=== PATIENT | male | born 1960 | race Caucasian/White ===

== ENCOUNTER 2018-01-18 21:39 | Inpatient (IN) | payer SELFPAY ==
[~2018-01-18] VITALS: Ht 165.1 cm; Wt 70.0 kg
[~2018-01-18 21:39] MED LIST: ALBU1AER INH; ALBU6.7H INH; PRED20 PO
[2018-01-18 22:00] VITALS: BP 111/73; PULSE 85; RESP 18; TEMP 98.4; O2SAT 100
[2018-01-18] MEDS ORDERED: SODIUM CHLORIDE 0.9% FLUSH 10 ML FLUSH IV FLUSH PRN (22:45)
[2018-01-18] MEDS ORDERED: MISCELLANEOUS NURSING INFORMATION XX SCH (22:45)
[2018-01-18] MEDS ORDERED: CHLORHEXIDINE GLUCONATE 2 % 1 PACK (2 CLOTHS) TOP PRN (22:45)
[2018-01-18] MEDS ORDERED: ENALAPRILAT 1.25 MG/ML VIAL IV PUSH PRN (22:45)
[2018-01-18] MEDS ORDERED: ONDANSETRON HCL 4 MG/2 ML VIAL IV PUSH PRN (22:45)
[2018-01-18] MEDS: SODIUM CHLOR 0.9% 1000 ML INJ 1,000 ML IV SCH (23:15)
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
[2018-01-18 23:44] LABS: HEMATOCRIT 33.3 % (39.0-51.0); HEMOGLOBIN 11.4 GM/DL (13.0-17.0)
[2018-01-19] VITALS (14 sets, daily range): BP systolic 96–133; BP diastolic 55–76; PULSE 60–90; RESP 15–24; TEMP 98.7–99.1; O2SAT 92–100
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
[2018-01-19] MEDS: CHLORHEXIDINE GLUCONATE 2 % 1 PACK (2 CLOTHS) TOP SCH (03:34)
[2018-01-19 03:47] LABS: BICARBONATE 22.2 MEQ/L (21.0-32.0); CALCIUM 7.7 MG/DL (8.5-10.1); CREATININE 2.42 MG/DL (0.60-1.30)
[2018-01-19 03:48] LABS: HEMATOCRIT 31.9 % (39.0-51.0)
[2018-01-19] MEDS ORDERED: LACTATED RINGER'S 1000 ML INJ 1,000 ML IV ONE (04:30)
[2018-01-19] MEDS ORDERED: CALC0.25 PO (05:29)
[2018-01-19] MEDS ORDERED: CENTCHW4 CHEW (05:29)
[2018-01-19] MEDS ORDERED: ATOR80TA45 PO (05:29)
[2018-01-19] MEDS ORDERED: METO25TA3 PO (05:29)
[2018-01-19] MEDS: MORPHINE SULFATE 4 MG/ML INJ IV PUSH PRN ×4 (06:17→23:16)
[2018-01-19] MEDS ORDERED: RESP: ALBUTEROL 2.5 MG/IPRATROPIUM 0.5 MG NEB (PRN) NEB (06:30)
--- NOTE | 2018-01-19 06:54 | RADRPT ---
EXAM DATE/TIME: 01/19/2018 06:40 [facility] COMPARISON: CHEST SINGLE AP, August 12, 2015, 21:38. INDICATIONS : Shortness of breath. MEDICAL HISTORY : Hypertension. Cardiovascular disease SURGICAL HISTORY : Appendectomy. ENCOUNTER: Subsequent ACUITY: 2 days PAIN SCORE: 0/10 LOCATION: Bilateral chest FINDINGS: No new focal pleural-parenchymal opacities. Cardiomediastinal contours are within normal limits. Infe rior Left-sided rib fractures. Remainder of exam is unchanged. CONCLUSION: 1. Redemonstration of inferior left rib fractures without pneumothorax. 2. Otherwise, no acute abnormality. Robert Whitt MD on January 19, 2018 at 6:51 Board Certified Radiologist. This report was verified electronically.
[2018-01-19 07:45] LABS: HEMATOCRIT 31.3 % (39.0-51.0); HEMOGLOBIN 10.8 GM/DL (13.0-17.0)
[2018-01-19] MEDS: RESP: ALBUTEROL 2.5 MG/IPRATROPIUM 0.5 MG NEB (SCH) NEB ×4 (08:00→19:51)
[2018-01-19] MEDS: METOPROLOL TARTRATE 25 MG TAB PO SCH ×2 (08:19→22:36)
[2018-01-19] MEDS: THIAMINE HCL 100 MG TAB PO SCH (08:19)
[2018-01-19] MEDS: ACETAMINOPHEN 1000 MG/100 ML 100 ML IV SCH ×3 (08:19→17:35)
[2018-01-19] MEDS: FAMOTIDINE 20 MG/2 ML VIAL IV PUSH SCH ×2 (08:19→22:35)
[2018-01-19] MEDS: FOLIC ACID 1 MG TAB PO SCH (08:19)
[2018-01-19] MEDS: SODIUM CHLOR 0.9% 1000 ML INJ 1,000 ML IV SCH ×2 (08:19→17:35)
[2018-01-19] MEDS: MULTIVITAMIN TAB PO SCH (08:19)
[2018-01-19] MEDS: LIDOCAINE HCL 5% PATCH T-DERMAL SCH (08:20)
--- NOTE | 2018-01-19 09:08 | RADRPT ---
EXAM DATE/TIME: 01/19/2018 08:43 [facility] COMPARISON: No previous studies available for comparison. INDICATIONS : Left tibia fracture RADIATION DOSE: 20.08 CTDIvol (mGy) MEDICAL HISTORY : Hypertension. Cardiovascular disease Chronic obstructive pulmonary disease. SURGICAL HISTORY : None. ENCOUNTER: Initial ACUITY: 1 day PAIN SCALE: 5/10 LOCATION: Left tibia TECHNIQUE: Volumetric scanning of the tibia and fibula was performed. Using automated exposure control and adju stment of the mA and/or kV according to patient size, radiation dose was kept as low as reasonably ac hievable to obtain optimal diagnostic quality images. DICOM format image data is available [facility] for review and comparison. FINDINGS: BONES: There is an oblique fracture of the proximal tibial metadiaphyseal region. It begins anteriorly just above the tibial tuberosity and exits posteriorly 7.5 cm below the articulating surface. There is an additional oblique fracture involving the neck of the fibula. JOINTS: Arthritic change of the medial compartment posteriorly with subchondral sclerosis and cystic change. Old osteochondral lesion of the talar dome laterally SOFT TISSUES: Muscles, tendons, and neurovascular structures are grossly unremarkable. No evidence of mass, organi zed fluid collection or foreign body. CONCLUSION: Slightly displaced fractures involving both the fibula and tibia. No definite lytic surfaces are invo lved and are not significantly angled or displacement. Arthritic change of the medial compartment and the lateral talar dome. Raymond Whittington MD on January 19, 2018 at 9:05 Board Certified Radiologist. This report was verified electronically.
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
--- NOTE | 2018-01-19 11:24 | HHI.CCPN ---
Objective Vital Signs Date Time Temp Pulse Resp B/P (MAP) Pulse Ox O2 Delivery O2 Flow Rate FiO2 01/19/18 10:00 67 01/19/18 08:00 98.9 24 133/76 (95) 95 01/19/18 07:00 Room Air Intake and Output 01/19/18 01/19/18 01/20/18 08:00 16:00 00:00 Intake Total 1565 ml Output Total 125 ml Balance 1440 ml Result Diagram: 01/19/18 0715 01/19/18 0319 Imaging Last 24 hours Impressions Lower Extremity CT 01/19/18 0000 Signed Impressions: Service Date/Time: January 08:43 - CONCLUSION: Slightly displaced fractures involving both the fibula and tibia. No definite lytic surfaces are involved and are not significantly angled or displacement. Arthritic change of the medial compartment and the lateral talar dome. Raymond Whittington MD Chest X-Ray 01/19/18 0000 Signed Impressions: Service Date/Time: January 06:40 - CONCLUSION: 1. Redemonstration of inferior left rib fractures without pneumothorax. 2. Otherwise, no acute abnormality. Robert Whitt MD Assessment and Plan Attestation The exam, history, and the medical decision-making described in the above note were completed with the assistance of the mid-level provider. I reviewed and agree with the findings presented. I attest that I had a [id number] encounter with the patient on the same day, and personally performed and documented my assessment and findings in the medical record. Guido Bauer MD Jan 19, 2018 11:24
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
[2018-01-19 12:19] LABS: AUTOMATED NEUTROPHIL # 6.8 TH/MM3 (1.8-7.7); BASOPHIL % 0.1 % (0.0-2.0); EOSINOPHIL % 0.4 % (0.0-4.0); HEMATOCRIT 34.2 % (39.0-51.0); HEMOGLOBIN 11.7 GM/DL (13.0-17.0); LYMPH % 16.1 % (9.0-44.0); LYMPHOCYTE # 1.5 TH/MM3 (1.0-4.8); MEAN CELL VOLUME 92.1 FL (80.0-100.0); MEAN CORPUSCULAR HEMOGLOBIN 31.4 PG (27.0-34.0); MEAN CORPUSCULAR HGB CONC 34.1 % (32.0-36.0); MEAN PLATELET VOLUME 8.2 FL (7.0-11.0); MONO % 9.7 % (0.0-8.0); MONOCYTE # 0.9 TH/MM3 (0-0.9); NEUT % 73.7 % (16.0-70.0); PLATELET COUNT 208 TH/MM3 (150-450); RED BLOOD COUNT 3.72 MIL/MM3 (4.50-5.90); RED CELL DISTRIBUTION WIDTH 13.5 % (11.6-17.2); WHITE BLOOD COUNT 9.2 TH/MM3 (4.0-11.0)
[2018-01-19 12:32] LABS: ALBUMIN 3.3 GM/DL (3.4-5.0); DIRECT BILIRUBIN ADULT 0.1 MG/DL (0.0-0.2)
[2018-01-19 12:39] LABS: INDIRECT BILIRUBIN 0.4 MG/DL (0.0-0.8); TOTAL BILIRUBIN ADULT 0.5 MG/DL (0.2-1.0); TOTAL PROTEIN 6.4 GM/DL (6.4-8.2)
[2018-01-19] MEDS: ATORVASTATIN 80 MG TAB PO SCH (22:36)
[2018-01-20] VITALS (14 sets, daily range): BP systolic 111–173; BP diastolic 62–84; PULSE 68–115; RESP 18–26; TEMP 97.7–98.7; O2SAT 92–100
[2018-01-20 00:20] LABS: HEMATOCRIT 27.1 % (39.0-51.0); HEMOGLOBIN 9.5 GM/DL (13.0-17.0)
[2018-01-20] MEDS: ACETAMINOPHEN 1000 MG/100 ML 100 ML IV SCH ×2 (00:43→01:30)
[2018-01-20] MEDS: SODIUM CHLOR 0.9% 1000 ML INJ 1,000 ML IV SCH (03:36)
[2018-01-20] MEDS: CHLORHEXIDINE GLUCONATE 2 % 1 PACK (2 CLOTHS) TOP SCH (04:00)
[2018-01-20] MEDS: MORPHINE SULFATE 4 MG/ML INJ IV PUSH PRN (04:51)
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
[2018-01-20] MEDS: RESP: ALBUTEROL 2.5 MG/IPRATROPIUM 0.5 MG NEB (SCH) NEB ×4 (08:10→20:00)
[2018-01-20] MEDS: METOPROLOL TARTRATE 25 MG TAB PO SCH ×2 (08:33→20:27)
[2018-01-20] MEDS: THIAMINE HCL 100 MG TAB PO SCH (08:33)
[2018-01-20] MEDS: FOLIC ACID 1 MG TAB PO SCH (08:33)
[2018-01-20] MEDS: MULTIVITAMIN TAB PO SCH (08:33)
[2018-01-20] MEDS: LIDOCAINE HCL 5% PATCH T-DERMAL SCH (08:34)
[2018-01-20] MEDS: FAMOTIDINE 20 MG/2 ML VIAL IV PUSH SCH (08:34)
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
[2018-01-20] MEDS: MORPHINE SULFATE 2 MG/ML INJ IV PUSH PRN ×2 (09:30→20:26)
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
[2018-01-20] MEDS: FAMOTIDINE 20 MG TAB PO SCH ×2 (12:00→20:27)
[2018-01-20] MEDS ORDERED: WHEEMIS3 (12:03)
[2018-01-20] MEDS: METHOCARBAMOL 500 MG TAB PO SCH ×2 (12:08→20:26)
[2018-01-20] MEDS: DOCUSATE SODIUM 100 MG CAP PO SCH ×2 (12:08→20:27)
[2018-01-20] MEDS: MAGNESIUM HYDROXIDE SUSP 30 ML CUP PO SCH ×2 (12:08→20:25)
[2018-01-20 13:52] LABS: HEMATOCRIT 30.2 % (39.0-51.0); HEMOGLOBIN 10.5 GM/DL (13.0-17.0)
[2018-01-20] MEDS: ACETAMINOPHEN/HYDROcodone 325 MG/5 MG TAB PO PRN ×2 (15:11→19:05)
--- NOTE | 2018-01-20 19:10 | RADRPT ---
EXAM DATE/TIME: 01/20/2018 18:14 [facility] COMPARISON: CHEST SINGLE AP, January 19, 2018, 6:40. INDICATIONS : Short of breath. MEDICAL HISTORY : Hypertension. Cardiovascular disease SURGICAL HISTORY : Appendectomy. ENCOUNTER: Subsequent ACUITY: 3 days PAIN SCORE: 0/10 LOCATION: Bilateral chest FINDINGS: Bibasilar streakiness is noted consistent with atelectasis and/or infiltrates. The heart is stable. T he pulmonary vascular pattern is normal. Degenerative changes are noted involving the shoulders bilat erally. CONCLUSION: Bibasilar streakiness consistent with atelectasis and/or infiltrate. Malachi Yang MD on January 20, 2018 at 19:08 Board Certified Radiologist. This report was verified electronically.
--- NOTE | 2018-01-20 19:12 | RADRPT ---
EXAM DATE/TIME: 01/20/2018 18:17 [facility] COMPARISON: No previous studies available for comparison. INDICATIONS : Post casting left tib fib. MEDICAL HISTORY : Hypertension. Chronic obstructive pulmonary disease. Hypertension. SURGICAL HISTORY : None. ENCOUNTER: Subsequent ACUITY: 3 days PAIN SCORE: 3/10 LOCATION: Left Tib fib. FINDINGS: Casting of the acute fractures involving the proximal tibia and fibula is noted. Plantar calcaneal sp urring is noted. Medial femoral tibial joint degenerative changes are noted. CONCLUSION: Status post casting of acute fractures involving the proximal tibia and fibula. Degen erative changes involving the medial femoral tibial joint. Plantar calcaneal spurring. Malachi Yang MD on January 20, 2018 at 19:09 Board Certified Radiologist. This report was verified electronically.
[2018-01-20] MEDS: ATORVASTATIN 80 MG TAB PO SCH (20:26)
[2018-01-20 21:40] LABS: HEMATOCRIT 25.5 % (39.0-51.0); HEMOGLOBIN 8.5 GM/DL (13.0-17.0)
[2018-01-21] VITALS (28 sets, daily range): BP systolic 98–179; BP diastolic 59–85; PULSE 82–119; RESP 17–26; TEMP 97.5–99.1; O2SAT 21–100
[2018-01-21 01:02] LABS: HEMOGLOBIN 7.1 GM/DL (13.0-17.0)
[2018-01-21 01:10] LABS: HEMATOCRIT 20.1 % (39.0-51.0)
[2018-01-21] MEDS: ACETAMINOPHEN/HYDROcodone 325 MG/5 MG TAB PO PRN ×3 (02:25→19:28)
[2018-01-21] MEDS ORDERED: IOHEXOL 350 MG/ML 10 ML VIAL (for RAD DIAG) IVCONTRAST ONE (02:42)
--- NOTE | 2018-01-21 03:00 | RADRPT ---
EXAM DATE/TIME: 01/21/2018 02:32 [facility] COMPARISON: No previous studies available for comparison. INDICATIONS : Decreased hemoblobin. Evaluate hemorrhage. IV CONTRAST: 75 Omnipaque 350 (iohexol) IV ORAL CONTRAST: No oral contrast ingested. RADIATION DOSE: 8.13 CTDIvol (mGy) MEDICAL HISTORY : Hypertension. SURGICAL HISTORY : Appendectomy. ENCOUNTER: Initial ACUITY: 1 day PAIN SCALE: Non-responsive LOCATION: abdomen TECHNIQUE: Volumetric scanning of the abdomen and pelvis was performed. Using automated exposure control and ad justment of the mA and/or kV according to patient size, radiation dose was kept as low as reasonably achievable to obtain optimal diagnostic quality images. DICOM format image data is available electro nically for review and comparison. FINDINGS: LOWER LUNGS: Small left pleural effusion and consolidation in the left lower lobe. Small area of opacity in the m edial right lower lung. Small hiatus hernia. LIVER: Homogeneous density without lesion. There is no dilation of the biliary tree. No calcified gallston es. SPLEEN: Multiple lucencies in the spleen including 2 vertical fracture lines and inhomogeneous enhancement in the posterior spleen. Perisplenic fluid is of intermediate density (59 Hounsfield units), greater i n density than the other fluid seen in the abdomen (the fluid about the liver has mean CT density 35 Hounsfield units and the fluid in the pelvis has CT density 36 Hounsfield). Some of the fracture adolfo es extend and are about the splenic hilum. PANCREAS: Within normal limits. KIDNEYS: Homogeneous parenchymal enhancement bilaterally. No cortical discontinuities. No evidence of hydron ephrosis. ADRENAL GLANDS: Within normal limits. VASCULAR: There is no aortic aneurysm. BOWEL/MESENTERY: No dilated loops of small or large bowel. Prominent amount of fluid throughout the abdomen and track ing into the pelvis, measuring 5 cm in AP dimension in the pelvis. The density of the fluid in the l eft paracolic gutter is greater than on the right. ABDOMINAL WALL: Within normal limits. RETROPERITONEUM: There is no lymphadenopathy. BLADDER: No wall thickening or mass. REPRODUCTIVE: Within normal limits. INGUINAL: There is no lymphadenopathy or hernia. MUSCULOSKELETAL: Nondisplaced fracture of the lateral left 9th rib and minimally displaced fracture of the posterior l eft 11th. CONCLUSION: Multiple splenic lacerations with intermediate density fluid in the left abdomen and significant flui d tracking into the pelvis. There are also 2 left rib fractures (9th and 11th). Devin Walls MD on January 21, 2018 at 2:50 Board Certified Radiologist. This report was verified electronically.
[2018-01-21] MEDS: CHLORHEXIDINE GLUCONATE 2 % 1 PACK (2 CLOTHS) TOP SCH (04:00)
[2018-01-21] MEDS: METHOCARBAMOL 500 MG TAB PO SCH ×3 (04:40→20:06)
--- NOTE | 2018-01-21 05:10 | RADRPT ---
EXAM DATE/TIME: 01/21/2018 04:15 [facility] COMPARISON: CHEST SINGLE AP, January 20, 2018, 18:14. INDICATIONS : Pulmonary contusion. Inferior left sided rib fractures. MEDICAL HISTORY : Hypertension. Cardiovascular disease SURGICAL HISTORY : Appendectomy. ENCOUNTER: Subsequent ACUITY: 4 - 6 days PAIN SCORE: 0/10 LOCATION: Bilateral chest FINDINGS: Persistent bibasilar atelectasis stable from prior. The remainder the lungs are clear. The heart is normal in size. CONCLUSION: Stable appearance to bibasilar atelectasis. No focal infiltrates seen. The Devin Walls MD on January 21, 2018 at 5:08 Board Certified Radiologist. This report was verified electronically.
[2018-01-21] MEDS: METOPROLOL TARTRATE 25 MG TAB PO SCH ×2 (08:07→20:05)
[2018-01-21] MEDS: RESP: ALBUTEROL 2.5 MG/IPRATROPIUM 0.5 MG NEB (SCH) NEB ×4 (08:27→20:09)
[2018-01-21] MEDS: FAMOTIDINE 20 MG TAB PO SCH ×2 (09:00→20:05)
[2018-01-21] MEDS: MULTIVITAMIN TAB PO SCH (09:00)
[2018-01-21] MEDS: FOLIC ACID 1 MG TAB PO SCH (09:00)
[2018-01-21] MEDS: DOCUSATE SODIUM 100 MG CAP PO SCH ×2 (09:00→20:05)
[2018-01-21] MEDS: THIAMINE HCL 100 MG TAB PO SCH (09:00)
[2018-01-21] MEDS: MAGNESIUM HYDROXIDE SUSP 30 ML CUP PO SCH ×2 (09:00→20:06)
[2018-01-21 09:30] LABS: AUTOMATED NEUTROPHIL # 6.6 TH/MM3 (1.8-7.7); BASOPHIL % 0.2 % (0.0-2.0); EOSINOPHIL # 0.1 TH/MM3 (0-0.4); EOSINOPHIL % 0.6 % (0.0-4.0); HEMOGLOBIN 9.1 GM/DL (13.0-17.0); LYMPH % 18.1 % (9.0-44.0); LYMPHOCYTE # 1.7 TH/MM3 (1.0-4.8); MEAN CELL VOLUME 87.3 FL (80.0-100.0); MEAN CORPUSCULAR HEMOGLOBIN 31.7 PG (27.0-34.0); MEAN PLATELET VOLUME 8.1 FL (7.0-11.0); MONO % 12.1 % (0.0-8.0); MONOCYTE # 1.1 TH/MM3 (0-0.9); PLATELET COUNT 131 TH/MM3 (150-450); RED BLOOD COUNT 2.86 MIL/MM3 (4.50-5.90); RED CELL DISTRIBUTION WIDTH 14.6 % (11.6-17.2); WHITE BLOOD COUNT 9.5 TH/MM3 (4.0-11.0)
[2018-01-21 09:34] LABS: MEAN CORPUSCULAR HGB CONC 36.4 % (32.0-36.0)
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
[2018-01-21 10:36] LABS: BANDS 9 % (0-6); LYMPHOCYTES 16 % (9-44); MONOCYTES 3 % (0-8); NEUTROPHIL # MANUAL DIFF 7.7 TH/MM3 (1.8-7.7); POLYS (SEG NEUTROPHILS) 72 % (16-70)
[2018-01-21] MEDS ORDERED: MIDAZOLAM HCL 2 MG/2 ML VIAL ONE (11:21)
[2018-01-21] MEDS ORDERED: ceFAZolin 2 GM PREMIX 50 ML ONE (11:34)
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
[2018-01-21] MEDS ORDERED: GELATIN 12 MM/7 MM FOAM I-ARTERIAL ONE (12:00)
[2018-01-21] MEDS ORDERED: IODIXANOL 320 MG/ML 50 ML VIAL (for RAD SPEC) I-ARTERIAL ONE (12:00)
--- NOTE | 2018-01-21 12:04 | PD.RAD ---
Post Procedure Progress Note Pre Procedure Diagnosis: (1) Splenic laceration Post Procedure Diagnosis: (1) Splenic laceration Procedure Date: Jan 21, 2018 Supervising Radiologist: Devin Franco JR Proceduralist/Assist: Demetris Phelps RT(R), Vashti Castellano RT(R) Anesthesia: Conscious Sedation Plan of Activity Patient to Unit: Critical Care Patient Condition: Good See PACS Report for procedural detail/treatment Vascular-Arterial Procedure Procedure 1 Procedure Site: Celiac Procedure(s): Angiogram, Embolization Access Access Site(s): Right Femoral Artery Findings: Selective splenic artery angio shows active hemorrhage from lower pole of spleen. Successful gelfoan embolization. No further bleeding. Plan Bach to unit in good condition. Jr. Salvador,Devin Ortega MD Jan 21, 2018 12:04
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
[2018-01-21] MEDS: LIDOCAINE HCL 5% PATCH T-DERMAL SCH (14:03)
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
[2018-01-21 15:39] LABS: HEMATOCRIT 21.3 % (39.0-51.0); HEMOGLOBIN 7.4 GM/DL (13.0-17.0)
[2018-01-21 15:56] LABS: ALBUMIN 2.5 GM/DL (3.4-5.0); ALT (GPT) 20 U/L (12-78); AST (GOT) 29 U/L (15-37); BICARBONATE 20.8 MEQ/L (21.0-32.0); BLOOD UREA NITROGEN 34 MG/DL (7-18); CALCIUM 7.7 MG/DL (8.5-10.1); CHLORIDE 108 MEQ/L (98-107); CREATININE 2.32 MG/DL (0.60-1.30); GLOMERULAR FILTRATION RATE 29 ML/MIN (>89); GLUCOSE,RANDOM 127 MG/DL (74-106); SODIUM (NA) 138 MEQ/L (136-145)
[2018-01-21 16:01] LABS: ALKALINE PHOSPHATASE 55 U/L (45-117); TOTAL BILIRUBIN ADULT 0.4 MG/DL (0.2-1.0); TOTAL PROTEIN 5.1 GM/DL (6.4-8.2)
[2018-01-21] MEDS: ATORVASTATIN 80 MG TAB PO SCH (20:05)
[2018-01-21] MEDS: MORPHINE SULFATE 2 MG/ML INJ IV PUSH PRN (22:59)
[2018-01-22] VITALS (13 sets, daily range): BP systolic 120–174; BP diastolic 69–96; PULSE 82–108; RESP 17–24; TEMP 97.5–99.2; O2SAT 90–98
[2018-01-22 03:38] LABS: HEMATOCRIT 28.5 % (39.0-51.0); HEMOGLOBIN 9.9 GM/DL (13.0-17.0)
[2018-01-22] MEDS: CHLORHEXIDINE GLUCONATE 2 % 1 PACK (2 CLOTHS) TOP SCH (04:00)
[2018-01-22] MEDS: METHOCARBAMOL 500 MG TAB PO SCH ×3 (04:02→20:00)
[2018-01-22] MEDS: ACETAMINOPHEN/HYDROcodone 325 MG/5 MG TAB PO PRN ×4 (04:02→20:57)
[2018-01-22] MEDS: MAGNESIUM HYDROXIDE SUSP 30 ML CUP PO SCH ×2 (08:13→20:00)
[2018-01-22] MEDS: FAMOTIDINE 20 MG TAB PO SCH ×2 (08:13→20:00)
[2018-01-22] MEDS: DOCUSATE SODIUM 100 MG CAP PO SCH ×2 (08:14→20:00)
[2018-01-22] MEDS: METOPROLOL TARTRATE 25 MG TAB PO SCH (08:14)
[2018-01-22] MEDS: LIDOCAINE HCL 5% PATCH T-DERMAL SCH (08:14)
[2018-01-22] MEDS: RESP: ALBUTEROL 2.5 MG/IPRATROPIUM 0.5 MG NEB (SCH) NEB ×4 (08:46→20:11)
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
[2018-01-22] MEDS: amLODIPine BESYLATE 5 MG TAB PO SCH (11:52)
[2018-01-22 11:57] LABS: BICARBONATE 23.6 MEQ/L (21.0-32.0); CALCIUM 7.9 MG/DL (8.5-10.1); CREATININE 2.3 MG/DL (0.60-1.30)
[2018-01-22] MEDS: MORPHINE SULFATE 2 MG/ML INJ IV PUSH PRN (18:53)
[2018-01-22] MEDS: ATORVASTATIN 80 MG TAB PO SCH (20:01)
[2018-01-22] MEDS: METOPROLOL TARTRATE 50 MG TAB PO SCH (20:01)
[2018-01-23] VITALS (7 sets, daily range): BP systolic 117–151; BP diastolic 62–87; PULSE 92–119; RESP 17–22; TEMP 96.8–99.3; O2SAT 90–98
[2018-01-23] MEDS: METHOCARBAMOL 500 MG TAB PO SCH ×4 (03:33→23:32)
[2018-01-23] MEDS: ACETAMINOPHEN/HYDROcodone 325 MG/5 MG TAB PO PRN ×3 (03:34→15:59)
[2018-01-23] MEDS: CHLORHEXIDINE GLUCONATE 2 % 1 PACK (2 CLOTHS) TOP SCH ×2 (03:34→23:32)
[2018-01-23 03:44] LABS: AUTOMATED NEUTROPHIL # 7.8 TH/MM3 (1.8-7.7); BASOPHIL % 0.2 % (0.0-2.0); EOSINOPHIL # 0.1 TH/MM3 (0-0.4); EOSINOPHIL % 1.2 % (0.0-4.0); HEMATOCRIT 21.5 % (39.0-51.0); HEMOGLOBIN 7.5 GM/DL (13.0-17.0); LYMPH % 10.3 % (9.0-44.0); MEAN CELL VOLUME 86.9 FL (80.0-100.0); MEAN CORPUSCULAR HEMOGLOBIN 30.4 PG (27.0-34.0); MONO % 10.6 % (0.0-8.0); MONOCYTE # 1.1 TH/MM3 (0-0.9); NEUT % 77.7 % (16.0-70.0); PLATELET COUNT 219 TH/MM3 (150-450); RED BLOOD COUNT 2.47 MIL/MM3 (4.50-5.90); RED CELL DISTRIBUTION WIDTH 15.2 % (11.6-17.2)
[2018-01-23 03:55] LABS: ALBUMIN 2.7 GM/DL (3.4-5.0); ALT (GPT) 20 U/L (12-78); AST (GOT) 38 U/L (15-37); BICARBONATE 24.8 MEQ/L (21.0-32.0); BLOOD UREA NITROGEN 34 MG/DL (7-18); CHLORIDE 106 MEQ/L (98-107); CREATININE 1.99 MG/DL (0.60-1.30); GLOMERULAR FILTRATION RATE 35 ML/MIN (>89); GLUCOSE,RANDOM 109 MG/DL (74-106); SODIUM (NA) 137 MEQ/L (136-145)
[2018-01-23 03:57] LABS: ALKALINE PHOSPHATASE 65 U/L (45-117); TOTAL BILIRUBIN ADULT 0.5 MG/DL (0.2-1.0); TOTAL PROTEIN 5.8 GM/DL (6.4-8.2)
[2018-01-23] MEDS: METOPROLOL TARTRATE 50 MG TAB PO SCH ×2 (08:10→21:00)
[2018-01-23] MEDS: DOCUSATE SODIUM 100 MG CAP PO SCH ×2 (08:10→21:00)
[2018-01-23] MEDS: MAGNESIUM HYDROXIDE SUSP 30 ML CUP PO SCH ×2 (08:10→21:00)
[2018-01-23] MEDS: LIDOCAINE HCL 5% PATCH T-DERMAL SCH (08:10)
[2018-01-23] MEDS: FAMOTIDINE 20 MG TAB PO SCH ×2 (08:10→21:00)
[2018-01-23] MEDS: amLODIPine BESYLATE 5 MG TAB PO SCH (08:10)
[2018-01-23 11:43] LABS: HEMATOCRIT 22.8 % (39.0-51.0); HEMOGLOBIN 7.8 GM/DL (13.0-17.0)
[2018-01-23] MEDS ORDERED: STERILE WATER FOR INJECTION 20 ML VIAL IV ONE (12:00)
[2018-01-23] MEDS ORDERED: SUCCINYLCHOLINE CHLORIDE 100 MG/5 ML SYRINGE IV PUSH ONE (12:00)
[2018-01-23] MEDS ORDERED: PROPOFOL 200 MG/20 ML AMP IV ONE (12:00)
[2018-01-23] MEDS ORDERED: GLYCOPYRROLATE 1 MG/5 ML SYRINGE IV PUSH ONE (12:00)
[2018-01-23] MEDS ORDERED: ONDANSETRON HCL 4 MG/2 ML VIAL IV ONE (12:00)
[2018-01-23] MEDS ORDERED: ROCURONIUM INJ 50 MG/5 ML SYRINGE IV PUSH ONE (12:00)
[2018-01-23] MEDS ORDERED: SODIUM CHLORID 0.9% 500 ML INJ 500 ML IV ONE (12:00)
[2018-01-23] MEDS ORDERED: LIDOCAINE HCL 1% PF 5 ML SYRINGE OTHER ONE (12:00)
[2018-01-23] MEDS ORDERED: LACTATED RINGER'S 1000 ML INJ 3,000 ML IV ONE (12:00)
[2018-01-23] MEDS ORDERED: NEOSTIGMINE 5 MG/5 ML SYRINGE IV PUSH ONE (12:00)
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
[2018-01-23] MEDS ORDERED: SODIUM CHLOR 0.9% 250 ML INJ 250 ML IV ONE (13:00)
[2018-01-23] MEDS ORDERED: HEPARIN SODIUM - SQ 10,000 UNITS/ML VIAL ONE ×2 (17:13→17:33)
[2018-01-23] MEDS ORDERED: ceFAZolin 2 GM PREMIX 50 ML ONE (17:32)
[2018-01-23] MEDS ORDERED: HEPARIN SODIUM - IV 10,000 UNITS/10 ML VIAL ONE (17:33)
[2018-01-23 19:45] LABS: HEMATOCRIT 23.3 % (39.0-51.0); HEMOGLOBIN 8.2 GM/DL (13.0-17.0); MEAN CELL VOLUME 87.3 FL (80.0-100.0); MEAN CORPUSCULAR HEMOGLOBIN 30.6 PG (27.0-34.0); MEAN CORPUSCULAR HGB CONC 35.1 % (32.0-36.0); MEAN PLATELET VOLUME 7.7 FL (7.0-11.0); PLATELET COUNT 236 TH/MM3 (150-450); RED BLOOD COUNT 2.68 MIL/MM3 (4.50-5.90); RED CELL DISTRIBUTION WIDTH 14.6 % (11.6-17.2); WHITE BLOOD COUNT 9.1 TH/MM3 (4.0-11.0)
[2018-01-23] MEDS ORDERED: SUGAMMADEX SODIUM 200 MG/2 ML VIAL IV PUSH ONE (19:58)
[2018-01-23] MEDS ORDERED: NALOXONE HCL 0.4 MG/ML AMP ONE (20:00)
[2018-01-23] MEDS ORDERED: DO NOT ADM ANY ANTICOAGULANT DRUGS PRN (20:03)
[2018-01-23] MEDS ORDERED: LORazepam 2 MG/ML VIAL ONE (20:06)
[2018-01-23] MEDS ORDERED: *RESP: ALBUTEROL 2.5 MG/3 ML NEB (PRN) PERIprocedural Use ONLY NEB ONE (20:07)
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
[2018-01-23] MEDS ORDERED: RESP: ALBUTEROL 2.5 MG/3 ML NEB (PRN) NEB (20:15)
[2018-01-23] MEDS ORDERED: SODIUM CHLORIDE 0.9% FLUSH 10 ML FLUSH IV FLUSH PRN (20:15)
[2018-01-23] MEDS ORDERED: NALOXONE HCL 0.4 MG/ML AMP IV PUSH PRN (20:15)
[2018-01-23] MEDS ORDERED: Post-op Orders (for Pharmacy) XX ONE (20:15)
[2018-01-23] MEDS ORDERED: ONDANSETRON HCL 4 MG/2 ML VIAL IV PUSH PRN (20:15)
[2018-01-23] MEDS ORDERED: MORPHINE SULFATE 4 MG/ML INJ ONE (20:18)
[2018-01-23 20:20] LABS: INTERNATIONAL NORMALIZED RATIO 1.1 RATIO; PROTHROMBIN TIME - PATIENT 10.8 SEC (9.8-11.6)
[2018-01-23 20:35] LABS: D-DIMER 22.58 MG/L FEU (0.00-0.50)
[2018-01-23] MEDS: SODIUM CHLORIDE 0.9% FLUSH 10 ML FLUSH IV FLUSH SCH (21:00)
[2018-01-23] MEDS: SODIUM CHLOR 0.9% 1000 ML INJ 1,000 ML IV SCH (21:00)
[2018-01-23] MEDS: ATORVASTATIN 80 MG TAB PO SCH (21:00)
[2018-01-23] MEDS: metroNIDAZOLE 500 MG INJ 100 ML IV SCH (22:44)
[2018-01-23] MEDS: HYDROmorphone HCL PF 2 MG/ML VIAL IV PUSH PRN (22:45)
[2018-01-24] VITALS (8 sets, daily range): BP systolic 132–151; BP diastolic 62–83; PULSE 91–106; RESP 17–28; TEMP 97.7–99.5; O2SAT 90–99
[2018-01-24] MEDS: metroNIDAZOLE 500 MG INJ 100 ML IV SCH ×2 (05:51→14:29)
[2018-01-24 06:08] LABS: AUTOMATED NEUTROPHIL # 9.4 TH/MM3 (1.8-7.7); BASOPHIL % 0.2 % (0.0-2.0); EOSINOPHIL % 0.4 % (0.0-4.0); HEMATOCRIT 28.1 % (39.0-51.0); LYMPHOCYTE # 0.8 TH/MM3 (1.0-4.8); MEAN CELL VOLUME 85.6 FL (80.0-100.0); MEAN CORPUSCULAR HEMOGLOBIN 30.4 PG (27.0-34.0); MEAN CORPUSCULAR HGB CONC 35.6 % (32.0-36.0); MONO % 14.1 % (0.0-8.0); MONOCYTE # 1.7 TH/MM3 (0-0.9); NEUT % 78.3 % (16.0-70.0); PLATELET COUNT 278 TH/MM3 (150-450); RED BLOOD COUNT 3.28 MIL/MM3 (4.50-5.90)
[2018-01-24 06:29] LABS: CALCIUM 7.6 MG/DL (8.5-10.1); CREATININE 1.68 MG/DL (0.60-1.30); MAGNESIUM 2.1 MG/DL (1.5-2.5)
[2018-01-24 06:31] LABS: PHOSPHORUS 3.4 MG/DL (2.5-4.9)
[2018-01-24] MEDS: SODIUM CHLOR 0.9% 1000 ML INJ 1,000 ML IV SCH ×2 (07:00→16:40)
[2018-01-24] MEDS: SODIUM CHLORIDE 0.9% FLUSH 10 ML FLUSH IV FLUSH SCH ×2 (09:00→20:45)
[2018-01-24] MEDS: amLODIPine BESYLATE 5 MG TAB PO SCH (09:18)
[2018-01-24] MEDS: METOPROLOL TARTRATE 50 MG TAB PO SCH ×2 (09:18→20:46)
[2018-01-24] MEDS: MAGNESIUM HYDROXIDE SUSP 30 ML CUP PO SCH ×2 (09:19→20:46)
[2018-01-24] MEDS: DOCUSATE SODIUM 100 MG CAP PO SCH ×2 (09:19→20:46)
[2018-01-24] MEDS: fentaNYL 50 MCG/HR PATCH T-DERMAL SCH (09:20)
[2018-01-24] MEDS: FAMOTIDINE 20 MG TAB PO SCH ×2 (09:20→20:46)
[2018-01-24] MEDS: LIDOCAINE HCL 5% PATCH T-DERMAL SCH (09:21)
[2018-01-24] MEDS: METHOCARBAMOL 500 MG TAB PO SCH ×2 (12:19→20:00)
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
[2018-01-24] MEDS: HYDROmorphone HCL PF 2 MG/ML VIAL IV PUSH PRN ×4 (13:37→20:50)
[2018-01-24 17:00] LABS: CREATININE, RANDOM URINE 38.2 MG/DL
[2018-01-24] MEDS: ATORVASTATIN 80 MG TAB PO SCH (20:46)
[2018-01-25] VITALS: BP 135/73; PULSE 101; RESP 17; TEMP 99.5; O2SAT 93
[2018-01-25] MEDS: HYDROmorphone HCL PF 2 MG/ML VIAL IV PUSH PRN ×6 (00:28→21:35)
[2018-01-25] MEDS: SODIUM CHLOR 0.9% 1000 ML INJ 1,000 ML IV SCH ×3 (03:58→20:07)
[2018-01-25] MEDS: CHLORHEXIDINE GLUCONATE 2 % 1 PACK (2 CLOTHS) TOP SCH (03:58)
[2018-01-25] MEDS: METHOCARBAMOL 500 MG TAB PO SCH ×3 (03:58→20:02)
[2018-01-25 04:31] LABS: AUTOMATED NEUTROPHIL # 10.1 TH/MM3 (1.8-7.7); BASOPHIL % 0.3 % (0.0-2.0); EOSINOPHIL # 0.2 TH/MM3 (0-0.4); EOSINOPHIL % 1.2 % (0.0-4.0); HEMATOCRIT 28.1 % (39.0-51.0); HEMOGLOBIN 9.6 GM/DL (13.0-17.0); LYMPH % 10.7 % (9.0-44.0); LYMPHOCYTE # 1.5 TH/MM3 (1.0-4.8); MEAN CELL VOLUME 88.3 FL (80.0-100.0); MEAN CORPUSCULAR HEMOGLOBIN 30.2 PG (27.0-34.0); MEAN CORPUSCULAR HGB CONC 34.2 % (32.0-36.0); MEAN PLATELET VOLUME 7.5 FL (7.0-11.0); MONO % 15.4 % (0.0-8.0); MONOCYTE # 2.1 TH/MM3 (0-0.9); NEUT % 72.4 % (16.0-70.0); PLATELET COUNT 405 TH/MM3 (150-450); RED BLOOD COUNT 3.18 MIL/MM3 (4.50-5.90); RED CELL DISTRIBUTION WIDTH 15.6 % (11.6-17.2); WHITE BLOOD COUNT 13.9 TH/MM3 (4.0-11.0)
[2018-01-25 04:55] LABS: BICARBONATE 22.2 MEQ/L (21.0-32.0); CALCIUM 8.3 MG/DL (8.5-10.1); CREATININE 1.58 MG/DL (0.60-1.30)
[2018-01-25 08:00] VITALS: BP 148/73; PULSE 96; RESP 17; TEMP 98; O2SAT 90
[2018-01-25] MEDS: amLODIPine BESYLATE 5 MG TAB PO SCH (08:10)
[2018-01-25] MEDS: FAMOTIDINE 20 MG TAB PO SCH ×2 (08:10→20:02)
[2018-01-25] MEDS: METOPROLOL TARTRATE 50 MG TAB PO SCH ×2 (08:10→20:02)
[2018-01-25] MEDS: DOCUSATE SODIUM 100 MG CAP PO SCH ×2 (08:10→20:02)
[2018-01-25] MEDS: LIDOCAINE HCL 5% PATCH T-DERMAL SCH (08:11)
[2018-01-25] MEDS: SODIUM CHLORIDE 0.9% FLUSH 10 ML FLUSH IV FLUSH SCH ×2 (08:28→20:06)
[2018-01-25] MEDS: MAGNESIUM HYDROXIDE SUSP 30 ML CUP PO SCH ×2 (08:28→20:04)
[2018-01-25 08:40] VITALS: O2SAT 94
[2018-01-25] MEDS ORDERED: WALKER WHEELS/F1 MIS (09:02)
[2018-01-25] MEDS: ACETAMINOPHEN/HYDROcodone 325 MG/5 MG TAB PO PRN ×3 (09:11→18:44)
[2018-01-25 12:00] VITALS: BP 133/71; PULSE 80; RESP 17; TEMP 96.1; O2SAT 90
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
[2018-01-25 16:00] VITALS: BP 148/86; PULSE 83; RESP 17; TEMP 97.2; O2SAT 95
[2018-01-25 20:00] VITALS: BP 135/78; PULSE 91; RESP 20; TEMP 98.4; O2SAT 95
[2018-01-25] MEDS: ATORVASTATIN 80 MG TAB PO SCH (20:02)
[2018-01-25] MEDS: HEPARIN SODIUM - SQ 10,000 UNITS/ML VIAL SQ SCH (21:35)
[2018-01-26] VITALS: BP 123/78; PULSE 79; RESP 18; TEMP 98.6; O2SAT 93
[2018-01-26] MEDS: ACETAMINOPHEN/HYDROcodone 325 MG/5 MG TAB PO PRN ×5 (00:30→19:05)
[2018-01-26] MEDS: HYDROmorphone HCL PF 2 MG/ML VIAL IV PUSH PRN ×5 (02:06→20:05)
[2018-01-26] MEDS: METHOCARBAMOL 500 MG TAB PO SCH ×3 (04:49→20:03)
[2018-01-26 04:54] LABS: AUTOMATED NEUTROPHIL # 9.8 TH/MM3 (1.8-7.7); BASOPHIL % 0.3 % (0.0-2.0); EOSINOPHIL # 0.3 TH/MM3 (0-0.4); EOSINOPHIL % 2.3 % (0.0-4.0); HEMATOCRIT 31.8 % (39.0-51.0); HEMOGLOBIN 11.2 GM/DL (13.0-17.0); LYMPH % 14.8 % (9.0-44.0); LYMPHOCYTE # 2.1 TH/MM3 (1.0-4.8); MEAN CELL VOLUME 87.2 FL (80.0-100.0); MEAN CORPUSCULAR HEMOGLOBIN 30.7 PG (27.0-34.0); MEAN CORPUSCULAR HGB CONC 35.2 % (32.0-36.0); NEUT % 68.6 % (16.0-70.0); PLATELET COUNT 452 TH/MM3 (150-450); RED BLOOD COUNT 3.64 MIL/MM3 (4.50-5.90); RED CELL DISTRIBUTION WIDTH 15.1 % (11.6-17.2); WHITE BLOOD COUNT 14.3 TH/MM3 (4.0-11.0)
[2018-01-26 04:59] LABS: BICARBONATE 24.9 MEQ/L (21.0-32.0); CALCIUM 8.1 MG/DL (8.5-10.1); CREATININE 1.44 MG/DL (0.60-1.30)
[2018-01-26] MEDS: HEPARIN SODIUM - SQ 10,000 UNITS/ML VIAL SQ SCH ×3 (05:20→20:11)
[2018-01-26 08:00] VITALS: BP 143/92; PULSE 87; RESP 17; TEMP 97.2; O2SAT 90
[2018-01-26] MEDS: METOPROLOL TARTRATE 50 MG TAB PO SCH ×2 (09:24→20:04)
[2018-01-26] MEDS: MAGNESIUM HYDROXIDE SUSP 30 ML CUP PO SCH ×2 (09:25→20:04)
[2018-01-26] MEDS: DOCUSATE SODIUM 100 MG CAP PO SCH ×2 (09:25→20:03)
[2018-01-26] MEDS: FAMOTIDINE 20 MG TAB PO SCH ×2 (09:25→20:03)
[2018-01-26] MEDS: amLODIPine BESYLATE 5 MG TAB PO SCH (09:25)
[2018-01-26] MEDS: LIDOCAINE HCL 5% PATCH T-DERMAL SCH (09:26)
[2018-01-26] MEDS: SODIUM CHLOR 0.9% 1000 ML INJ 1,000 ML IV SCH ×2 (09:42→19:00)
[2018-01-26] MEDS: SODIUM CHLORIDE 0.9% FLUSH 10 ML FLUSH IV FLUSH SCH ×2 (09:42→20:08)
[2018-01-26 12:00] VITALS: BP 124/81; PULSE 68; RESP 17; TEMP 95.5; O2SAT 97
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
[2018-01-26 16:00] VITALS: BP 127/76; PULSE 81; RESP 17; TEMP 96.4; O2SAT 92
[2018-01-26 19:34] VITALS: O2SAT 94
[2018-01-26 20:00] VITALS: BP 133/84; PULSE 75; RESP 18; TEMP 98.4; O2SAT 95
[2018-01-26] MEDS: ATORVASTATIN 80 MG TAB PO SCH (20:03)
[2018-01-27] VITALS: BP 114/76; PULSE 76; RESP 18; TEMP 96.3; O2SAT 94
[2018-01-27] MEDS: ACETAMINOPHEN/HYDROcodone 325 MG/5 MG TAB PO PRN ×5 (00:34→21:32)
[2018-01-27] MEDS: METHOCARBAMOL 500 MG TAB PO SCH ×3 (03:20→21:27)
[2018-01-27] MEDS: HYDROmorphone HCL PF 2 MG/ML VIAL IV PUSH PRN (03:21)
[2018-01-27] MEDS: REMOVE OLD DURAGESIC (FENTANYL) PATCH T-DERMAL SCH (05:41)
[2018-01-27] MEDS: fentaNYL 50 MCG/HR PATCH T-DERMAL SCH (05:42)
[2018-01-27] MEDS: HEPARIN SODIUM - SQ 10,000 UNITS/ML VIAL SQ SCH ×3 (05:43→21:34)
[2018-01-27] MEDS: SODIUM CHLOR 0.9% 1000 ML INJ 1,000 ML IV SCH ×3 (05:48→23:31)
[2018-01-27 08:00] VITALS: BP 140/78; PULSE 75; RESP 18; TEMP 96.7; O2SAT 94
[2018-01-27] MEDS: METOPROLOL TARTRATE 50 MG TAB PO SCH ×2 (09:51→21:27)
[2018-01-27] MEDS: FAMOTIDINE 20 MG TAB PO SCH ×2 (09:52→21:27)
[2018-01-27] MEDS: DOCUSATE SODIUM 100 MG CAP PO SCH ×2 (09:52→21:27)
[2018-01-27] MEDS: MAGNESIUM HYDROXIDE SUSP 30 ML CUP PO SCH ×2 (09:52→21:00)
[2018-01-27] MEDS: SODIUM CHLORIDE 0.9% FLUSH 10 ML FLUSH IV FLUSH SCH ×2 (09:52→21:38)
[2018-01-27] MEDS: amLODIPine BESYLATE 5 MG TAB PO SCH (09:52)
[2018-01-27] MEDS: LIDOCAINE HCL 5% PATCH T-DERMAL SCH (09:57)
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
[2018-01-27 12:00] VITALS: BP 126/75; PULSE 81; RESP 17; TEMP 97.1; O2SAT 98
[2018-01-27 16:00] VITALS: BP 117/71; PULSE 82; RESP 16; TEMP 98.6; O2SAT 94
[2018-01-27 17:43] VITALS: O2SAT 94
[2018-01-27 20:00] VITALS: BP 124/73; PULSE 85; RESP 17; TEMP 96.6; O2SAT 96
[2018-01-27] MEDS: ATORVASTATIN 80 MG TAB PO SCH (21:27)
[2018-01-28] VITALS: BP 127/79; PULSE 80; RESP 18; TEMP 98.4; O2SAT 97
[2018-01-28 05:09] LABS: AUTOMATED NEUTROPHIL # 8.3 TH/MM3 (1.8-7.7); BASOPHIL # 0.1 TH/MM3 (0-0.2); BASOPHIL % 0.4 % (0.0-2.0); EOSINOPHIL # 0.3 TH/MM3 (0-0.4); EOSINOPHIL % 2.5 % (0.0-4.0); HEMATOCRIT 36.6 % (39.0-51.0); HEMOGLOBIN 12.2 GM/DL (13.0-17.0); LYMPHOCYTE # 2.4 TH/MM3 (1.0-4.8); MEAN CORPUSCULAR HEMOGLOBIN 30.3 PG (27.0-34.0); MEAN CORPUSCULAR HGB CONC 33.3 % (32.0-36.0); MEAN PLATELET VOLUME 7.9 FL (7.0-11.0); MONO % 11.4 % (0.0-8.0); MONOCYTE # 1.4 TH/MM3 (0-0.9); NEUT % 66.7 % (16.0-70.0); PLATELET COUNT 725 TH/MM3 (150-450); RED BLOOD COUNT 4.03 MIL/MM3 (4.50-5.90); WHITE BLOOD COUNT 12.5 TH/MM3 (4.0-11.0)
[2018-01-28 05:10] LABS: ALBUMIN 2.6 GM/DL (3.4-5.0); ALT (GPT) 21 U/L (12-78); AST (GOT) 34 U/L (15-37); BICARBONATE 27.5 MEQ/L (21.0-32.0); BLOOD UREA NITROGEN 21 MG/DL (7-18); CALCIUM 8.7 MG/DL (8.5-10.1); CHLORIDE 99 MEQ/L (98-107); CREATININE 1.43 MG/DL (0.60-1.30); GLOMERULAR FILTRATION RATE 51 ML/MIN (>89); GLUCOSE,RANDOM 80 MG/DL (74-106); SODIUM (NA) 134 MEQ/L (136-145)
[2018-01-28 05:12] LABS: ALKALINE PHOSPHATASE 98 U/L (45-117); TOTAL BILIRUBIN ADULT 0.6 MG/DL (0.2-1.0); TOTAL PROTEIN 6.3 GM/DL (6.4-8.2)
[2018-01-28] MEDS: METHOCARBAMOL 500 MG TAB PO SCH ×3 (05:26→21:44)
[2018-01-28] MEDS: ACETAMINOPHEN/HYDROcodone 325 MG/5 MG TAB PO PRN ×2 (05:26→23:41)
[2018-01-28] MEDS: HEPARIN SODIUM - SQ 10,000 UNITS/ML VIAL SQ SCH ×3 (05:26→21:43)
[2018-01-28 08:00] VITALS: BP 139/81; PULSE 88; RESP 18; TEMP 97.2; O2SAT 95
[2018-01-28] MEDS: LIDOCAINE HCL 5% PATCH T-DERMAL SCH (09:00)
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
[2018-01-28] MEDS: amLODIPine BESYLATE 5 MG TAB PO SCH (10:26)
[2018-01-28] MEDS: DOCUSATE SODIUM 100 MG CAP PO SCH ×2 (10:26→21:44)
[2018-01-28] MEDS: FAMOTIDINE 20 MG TAB PO SCH ×2 (10:27→21:44)
[2018-01-28] MEDS: MAGNESIUM HYDROXIDE SUSP 30 ML CUP PO SCH ×2 (10:27→21:44)
[2018-01-28] MEDS: METOPROLOL TARTRATE 50 MG TAB PO SCH ×2 (10:27→21:44)
[2018-01-28 12:00] VITALS: BP 129/77; PULSE 77; RESP 17; TEMP 98.4; O2SAT 95
[2018-01-28] MEDS: SODIUM CHLORIDE 0.9% FLUSH 10 ML FLUSH IV FLUSH SCH ×2 (12:25→21:44)
[2018-01-28 16:00] VITALS: BP 121/68; PULSE 89; RESP 16; TEMP 97; O2SAT 91
[2018-01-28 20:00] VITALS: BP 109/69; PULSE 86; RESP 18; TEMP 98.3; O2SAT 95
[2018-01-28] MEDS: ATORVASTATIN 80 MG TAB PO SCH (21:44)
[2018-01-28 22:08] VITALS: O2SAT 97
[2018-01-29 00:32] VITALS: BP 123/81; PULSE 95; RESP 18; TEMP 96.3; O2SAT 96
[2018-01-29] MEDS: METHOCARBAMOL 500 MG TAB PO SCH (04:37)
[2018-01-29] MEDS: ACETAMINOPHEN/HYDROcodone 325 MG/5 MG TAB PO PRN ×3 (04:38→16:57)
[2018-01-29] MEDS: HEPARIN SODIUM - SQ 10,000 UNITS/ML VIAL SQ SCH ×3 (05:01→20:37)
[2018-01-29] MEDS ORDERED: HYDROmorphone HCL PF 2 MG/ML VIAL IV PUSH PRN (07:15)
[2018-01-29 08:00] VITALS: BP 129/75; PULSE 87; RESP 17; TEMP 97.7; O2SAT 93
[2018-01-29] MEDS: MAGNESIUM HYDROXIDE SUSP 30 ML CUP PO SCH ×2 (09:00→20:37)
[2018-01-29] MEDS: SODIUM CHLORIDE 0.9% FLUSH 10 ML FLUSH IV FLUSH SCH ×2 (09:00→20:38)
[2018-01-29] MEDS: METOPROLOL TARTRATE 50 MG TAB PO SCH ×2 (09:00→20:37)
[2018-01-29] MEDS: DOCUSATE SODIUM 100 MG CAP PO SCH ×2 (09:00→20:38)
[2018-01-29] MEDS: LIDOCAINE HCL 5% PATCH T-DERMAL SCH (09:00)
[2018-01-29] MEDS: amLODIPine BESYLATE 5 MG TAB PO SCH (09:00)
[2018-01-29] MEDS: FAMOTIDINE 20 MG TAB PO SCH ×2 (09:00→20:37)
[2018-01-29 12:00] VITALS: BP 103/62; PULSE 67; RESP 16; TEMP 95.8; O2SAT 98
[2018-01-29] MEDS ORDERED: METHOCARBAMOL 500 MG TAB PO PRN (12:00)
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
[2018-01-29 16:00] VITALS: BP 105/60; PULSE 74; RESP 16; TEMP 98.8; O2SAT 94
[2018-01-29 20:00] VITALS: BP 106/64; PULSE 75; RESP 18; TEMP 97.9; O2SAT 94
[2018-01-29] MEDS: ATORVASTATIN 80 MG TAB PO SCH (20:37)
[2018-01-30 00:47] VITALS: BP 115/71; PULSE 77; RESP 18; TEMP 98; O2SAT 94
[2018-01-30] MEDS: HEPARIN SODIUM - SQ 10,000 UNITS/ML VIAL SQ SCH ×3 (04:03→23:00)
[2018-01-30] MEDS: fentaNYL 50 MCG/HR PATCH T-DERMAL SCH (04:06)
[2018-01-30] MEDS: REMOVE OLD DURAGESIC (FENTANYL) PATCH T-DERMAL SCH (04:06)
[2018-01-30 08:00] VITALS: BP 112/70; PULSE 87; RESP 17; TEMP 97.6; O2SAT 94
[2018-01-30] MEDS: DOCUSATE SODIUM 100 MG CAP PO SCH ×2 (09:00→20:03)
[2018-01-30] MEDS: MAGNESIUM HYDROXIDE SUSP 30 ML CUP PO SCH ×2 (09:00→20:04)
[2018-01-30] MEDS: LIDOCAINE HCL 5% PATCH T-DERMAL SCH (10:14)
[2018-01-30] MEDS: FAMOTIDINE 20 MG TAB PO SCH ×2 (10:14→20:04)
[2018-01-30] MEDS: METOPROLOL TARTRATE 50 MG TAB PO SCH ×2 (10:14→20:03)
[2018-01-30] MEDS: amLODIPine BESYLATE 5 MG TAB PO SCH (10:14)
[2018-01-30] MEDS: SODIUM CHLORIDE 0.9% FLUSH 10 ML FLUSH IV FLUSH SCH ×2 (10:15→20:04)
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
[2018-01-30 12:00] VITALS: BP 127/81; PULSE 80; RESP 17; TEMP 95.4; O2SAT 97
[2018-01-30 14:05] VITALS: O2SAT 96
[2018-01-30 16:00] VITALS: BP 107/64; PULSE 81; RESP 17; TEMP 98.4; O2SAT 95
[2018-01-30 20:00] VITALS: BP 111/67; PULSE 79; RESP 18; TEMP 98.2; O2SAT 97
[2018-01-30] MEDS: ATORVASTATIN 80 MG TAB PO SCH (20:04)
[2018-01-31] VITALS: BP 117/67; PULSE 66; RESP 18; TEMP 97.5; O2SAT 97
[2018-01-31] MEDS: HEPARIN SODIUM - SQ 10,000 UNITS/ML VIAL SQ SCH ×3 (05:39→23:50)
[2018-01-31 08:00] VITALS: BP 117/68; PULSE 83; RESP 16; TEMP 97.7; O2SAT 95
[2018-01-31] MEDS: MAGNESIUM HYDROXIDE SUSP 30 ML CUP PO SCH ×2 (08:36→20:51)
[2018-01-31] MEDS: DOCUSATE SODIUM 100 MG CAP PO SCH ×2 (08:36→20:48)
[2018-01-31] MEDS: amLODIPine BESYLATE 5 MG TAB PO SCH (08:37)
[2018-01-31] MEDS: METOPROLOL TARTRATE 50 MG TAB PO SCH ×2 (08:37→20:51)
[2018-01-31] MEDS: FAMOTIDINE 20 MG TAB PO SCH ×2 (08:37→20:51)
[2018-01-31] MEDS: SODIUM CHLORIDE 0.9% FLUSH 10 ML FLUSH IV FLUSH SCH ×2 (08:37→20:52)
[2018-01-31] MEDS: LIDOCAINE HCL 5% PATCH T-DERMAL SCH (08:38)
[2018-01-31 12:00] VITALS: BP 125/69; PULSE 69; RESP 18; TEMP 97.3; O2SAT 99
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
[2018-01-31 16:00] VITALS: BP 115/71; PULSE 79; RESP 16; TEMP 97.6; O2SAT 96
[2018-01-31 20:00] VITALS: BP 109/69; PULSE 86; RESP 20; TEMP 98.1; O2SAT 95
[2018-01-31] MEDS: ATORVASTATIN 80 MG TAB PO SCH (20:48)
[2018-02-01] VITALS: BP 106/69; PULSE 75; RESP 20; TEMP 98.6; O2SAT 97
[2018-02-01] MEDS: HEPARIN SODIUM - SQ 10,000 UNITS/ML VIAL SQ SCH ×3 (06:21→21:40)
[2018-02-01 08:00] VITALS: BP 112/72; PULSE 73; RESP 17; TEMP 97.1; O2SAT 96
[2018-02-01] MEDS: DOCUSATE SODIUM 100 MG CAP PO SCH ×2 (09:00→21:00)
[2018-02-01] MEDS: MAGNESIUM HYDROXIDE SUSP 30 ML CUP PO SCH ×2 (09:00→21:00)
[2018-02-01] MEDS: FAMOTIDINE 20 MG TAB PO SCH ×2 (10:33→21:34)
[2018-02-01] MEDS: amLODIPine BESYLATE 5 MG TAB PO SCH (10:34)
[2018-02-01] MEDS: METOPROLOL TARTRATE 50 MG TAB PO SCH ×2 (10:34→21:34)
[2018-02-01] MEDS: SODIUM CHLORIDE 0.9% FLUSH 10 ML FLUSH IV FLUSH SCH ×2 (10:35→21:37)
[2018-02-01 12:00] VITALS: BP 115/71; PULSE 87; RESP 18; TEMP 96.4; O2SAT 97
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
[2018-02-01 16:00] VITALS: BP 107/62; PULSE 73; RESP 18; TEMP 96.2; O2SAT 98
[2018-02-01] MEDS ORDERED: MENINGOCOCCAL CONJUGATE VACCINE 0.5 ML VIAL IM ONE (16:00)
[2018-02-01] MEDS ORDERED: PNEUMOCOCCAL POLYVALENT INJ 25 MCG/0.5 ML SYR IM ONE (16:00)
[2018-02-01] MEDS ORDERED: HAEMOPH B POLYSACCH CONJ VACCINE 0.5 ML VIAL IM ONE (16:00)
[2018-02-01 20:00] VITALS: BP 113/69; PULSE 83; RESP 18; TEMP 98; O2SAT 95
[2018-02-01] MEDS: ATORVASTATIN 80 MG TAB PO SCH (21:34)
[2018-02-02] VITALS: BP 107/60; PULSE 74; RESP 18; TEMP 99.2; O2SAT 95
[2018-02-02] MEDS: HEPARIN SODIUM - SQ 10,000 UNITS/ML VIAL SQ SCH ×3 (06:29→21:51)
[2018-02-02] MEDS: REMOVE OLD DURAGESIC (FENTANYL) PATCH T-DERMAL SCH (06:34)
[2018-02-02] MEDS: fentaNYL 50 MCG/HR PATCH T-DERMAL SCH (06:34)
[2018-02-02 08:00] VITALS: BP 110/60; PULSE 72; RESP 19; TEMP 97.8; O2SAT 98
[2018-02-02] MEDS: METOPROLOL TARTRATE 50 MG TAB PO SCH ×2 (08:23→21:50)
[2018-02-02] MEDS: DOCUSATE SODIUM 100 MG CAP PO SCH ×2 (08:23→21:00)
[2018-02-02] MEDS: amLODIPine BESYLATE 5 MG TAB PO SCH (08:23)
[2018-02-02] MEDS: FAMOTIDINE 20 MG TAB PO SCH ×2 (08:23→21:50)
[2018-02-02] MEDS: MAGNESIUM HYDROXIDE SUSP 30 ML CUP PO SCH ×2 (08:23→21:00)
[2018-02-02] MEDS: SODIUM CHLORIDE 0.9% FLUSH 10 ML FLUSH IV FLUSH SCH ×2 (08:24→21:00)
[2018-02-02] MEDS: LIDOCAINE HCL 5% PATCH T-DERMAL SCH ×2 (08:24→08:30)
[2018-02-02 12:00] VITALS: BP 108/61; PULSE 64; RESP 20; TEMP 96.9; O2SAT 96
[2018-02-02] MEDS ORDERED: METH500T3 PO (14:17)
[2018-02-02] MEDS ORDERED: HYDR-3516 PO (14:17)
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
[2018-02-02 16:00] VITALS: BP 128/67; PULSE 77; RESP 19; TEMP 96.9; O2SAT 98
[2018-02-02 19:25] VITALS: O2SAT 98
[2018-02-02 20:00] VITALS: BP 113/70; PULSE 76; RESP 18; TEMP 98; O2SAT 96
[2018-02-02] MEDS: ATORVASTATIN 80 MG TAB PO SCH (21:50)
[2018-02-03] VITALS: BP 112/64; PULSE 74; RESP 18; TEMP 98.4; O2SAT 95
[2018-02-03] MEDS: HEPARIN SODIUM - SQ 10,000 UNITS/ML VIAL SQ SCH ×2 (06:41→14:53)
[2018-02-03 08:00] VITALS: BP 106/64; PULSE 75; RESP 19; TEMP 97.2; O2SAT 96
[2018-02-03] MEDS: amLODIPine BESYLATE 5 MG TAB PO SCH (09:00)
[2018-02-03] MEDS: DOCUSATE SODIUM 100 MG CAP PO SCH ×2 (09:00→21:02)
[2018-02-03] MEDS: MAGNESIUM HYDROXIDE SUSP 30 ML CUP PO SCH ×2 (09:00→21:00)
[2018-02-03] MEDS: METOPROLOL TARTRATE 50 MG TAB PO SCH ×2 (09:00→21:04)
[2018-02-03] MEDS: FAMOTIDINE 20 MG TAB PO SCH ×2 (09:25→21:02)
[2018-02-03] MEDS: LIDOCAINE HCL 5% PATCH T-DERMAL SCH (09:26)
[2018-02-03] MEDS: SODIUM CHLORIDE 0.9% FLUSH 10 ML FLUSH IV FLUSH SCH ×2 (09:29→21:02)
[2018-02-03 12:00] VITALS: BP 133/85; PULSE 84; RESP 20; TEMP 96.9; O2SAT 95
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
[2018-02-03 16:00] VITALS: BP 140/76; PULSE 87; RESP 20; TEMP 96.9; O2SAT 97
[2018-02-03 20:00] VITALS: BP 122/66; PULSE 89; RESP 20; TEMP 98.1; O2SAT 96
[2018-02-03] MEDS: ATORVASTATIN 80 MG TAB PO SCH (21:02)
[2018-02-04] MEDS: HEPARIN SODIUM - SQ 10,000 UNITS/ML VIAL SQ SCH ×4 (00:08→21:57)
[2018-02-04] MEDS: ACETAMINOPHEN/HYDROcodone 325 MG/5 MG TAB PO PRN ×4 (00:09→18:05)
[2018-02-04 00:27] VITALS: BP 106/65; PULSE 76; RESP 19; TEMP 98.8; O2SAT 96
[2018-02-04 02:34] VITALS: O2SAT 96
[2018-02-04 04:06] LABS: AUTOMATED NEUTROPHIL # 11.6 TH/MM3 (1.8-7.7); BASOPHIL # 0.1 TH/MM3 (0-0.2); BASOPHIL % 0.5 % (0.0-2.0); EOSINOPHIL # 0.3 TH/MM3 (0-0.4); EOSINOPHIL % 1.9 % (0.0-4.0); HEMATOCRIT 32.9 % (39.0-51.0); LYMPH % 17.5 % (9.0-44.0); LYMPHOCYTE # 2.9 TH/MM3 (1.0-4.8); MEAN CELL VOLUME 90.3 FL (80.0-100.0); MEAN CORPUSCULAR HGB CONC 33.3 % (32.0-36.0); MEAN PLATELET VOLUME 7.4 FL (7.0-11.0); MONO % 10.2 % (0.0-8.0); MONOCYTE # 1.7 TH/MM3 (0-0.9); NEUT % 69.9 % (16.0-70.0); PLATELET COUNT 1203 TH/MM3 (150-450); RED BLOOD COUNT 3.65 MIL/MM3 (4.50-5.90); RED CELL DISTRIBUTION WIDTH 15.2 % (11.6-17.2); WHITE BLOOD COUNT 16.5 TH/MM3 (4.0-11.0)
[2018-02-04 04:09] LABS: BICARBONATE 25.3 MEQ/L (21.0-32.0); CALCIUM 8.7 MG/DL (8.5-10.1); CREATININE 1.78 MG/DL (0.60-1.30)
[2018-02-04 08:00] VITALS: BP 113/62; PULSE 81; RESP 18; TEMP 96.2; O2SAT 95
[2018-02-04] MEDS: METOPROLOL TARTRATE 50 MG TAB PO SCH ×2 (08:39→21:57)
[2018-02-04] MEDS: amLODIPine BESYLATE 5 MG TAB PO SCH (08:39)
[2018-02-04] MEDS: DOCUSATE SODIUM 100 MG CAP PO SCH ×2 (08:39→21:47)
[2018-02-04] MEDS: MAGNESIUM HYDROXIDE SUSP 30 ML CUP PO SCH ×2 (08:40→21:00)
[2018-02-04] MEDS: LIDOCAINE HCL 5% PATCH T-DERMAL SCH (08:40)
[2018-02-04] MEDS: SODIUM CHLORIDE 0.9% FLUSH 10 ML FLUSH IV FLUSH SCH ×2 (08:40→21:47)
[2018-02-04] MEDS: FAMOTIDINE 20 MG TAB PO SCH ×2 (08:40→21:48)
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
[2018-02-04] MEDS ORDERED: ASPIRIN EC 81 MG TABEC PO SCH (10:00)
--- NOTE | 2018-02-04 11:01 | RADRPT ---
EXAM DATE/TIME: 02/04/2018 10:24 [place] COMPARISON: CHEST SINGLE AP, January 21, 2018, 4:15. INDICATIONS : Lightheaded. MEDICAL HISTORY : Hypertension. Cardiovascular disease SURGICAL HISTORY : Splenectomy. Appendectomy. ENCOUNTER: Initial ACUITY: 1 day PAIN SCORE: 0/10 LOCATION: Bilateral chest FINDINGS: Single view the chest demonstrates new left lower lobe airspace consolidation. The right hemithorax i s clear. The left lung apex is clear. Heart size appears minimally enlarged. Pulmonary vasculature is normal. Osseous structures demonstrate significant degenerative change within the right glenohumeral joint. CONCLUSION: New left sided airspace consolidation within the left lower lobe concerning for pneumonia. Yanni Sarah MD on February 04, 2018 at 10:58 Board Certified Radiologist. This report was verified electronically.
[2018-02-04 12:00] VITALS: BP 108/63; PULSE 78; RESP 16; TEMP 97.2; O2SAT 97
[2018-02-04 16:00] VITALS: BP 121/69; PULSE 84; RESP 16; TEMP 97.4; O2SAT 98
[2018-02-04 20:00] VITALS: BP 118/62; PULSE 90; RESP 18; TEMP 95.5; O2SAT 97
[2018-02-04] MEDS: ATORVASTATIN 80 MG TAB PO SCH (21:48)
[2018-02-05] VITALS: BP 109/66; PULSE 75; RESP 20; TEMP 97.5; O2SAT 97
[2018-02-05] MEDS: ACETAMINOPHEN/HYDROcodone 325 MG/5 MG TAB PO PRN ×4 (00:05→17:53)
[2018-02-05] MEDS: METHOCARBAMOL 500 MG TAB PO SCH ×3 (02:26→17:53)
[2018-02-05] MEDS: HEPARIN SODIUM - SQ 10,000 UNITS/ML VIAL SQ SCH ×2 (05:40→15:50)
[2018-02-05 08:00] VITALS: BP 118/67; PULSE 67; RESP 18; TEMP 97.3; O2SAT 95
[2018-02-05] MEDS: LIDOCAINE HCL 5% PATCH T-DERMAL SCH (08:41)
[2018-02-05] MEDS: FAMOTIDINE 20 MG TAB PO SCH ×2 (08:41→20:55)
[2018-02-05] MEDS: MAGNESIUM HYDROXIDE SUSP 30 ML CUP PO SCH ×2 (08:41→20:56)
[2018-02-05] MEDS: DOCUSATE SODIUM 100 MG CAP PO SCH ×2 (08:42→20:56)
[2018-02-05] MEDS: SODIUM CHLORIDE 0.9% FLUSH 10 ML FLUSH IV FLUSH SCH ×2 (08:44→20:56)
[2018-02-05] MEDS: METOPROLOL TARTRATE 50 MG TAB PO SCH ×2 (08:45→20:55)
[2018-02-05] MEDS: amLODIPine BESYLATE 5 MG TAB PO SCH (08:45)
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
[2018-02-05 12:00] VITALS: BP 118/65; PULSE 84; RESP 18; TEMP 96.5; O2SAT 100
[2018-02-05 16:00] VITALS: BP 110/69; PULSE 74; RESP 17; TEMP 96.9; O2SAT 97
[2018-02-05] MEDS ORDERED: AMLO5 PO (16:25)
[2018-02-05] MEDS ORDERED: METO25TA3 PO (16:25)
[2018-02-05] MEDS ORDERED: CALC0.25 PO (16:25)
[2018-02-05] MEDS ORDERED: ATOR80TA45 PO (16:25)
[2018-02-05] MEDS ORDERED: DOCU1CAP39 PO (16:25)
[2018-02-05] MEDS ORDERED: FAMO20TA2 PO (16:25)
[2018-02-05] MEDS ORDERED: MAGN30S PO (16:25)
[2018-02-05] MEDS ORDERED: CENTCHW4 CHEW (16:25)
[2018-02-05 20:00] VITALS: BP 120/65; PULSE 83; RESP 20; TEMP 97.2; O2SAT 97
[2018-02-05 20:19] VITALS: O2SAT 98
[2018-02-05] MEDS: ATORVASTATIN 80 MG TAB PO SCH (20:55)
[2018-02-06] VITALS: BP 109/55; PULSE 70; RESP 20; TEMP 95.9; O2SAT 97
[2018-02-06] MEDS: ACETAMINOPHEN/HYDROcodone 325 MG/5 MG TAB PO PRN ×3 (00:19→12:48)
[2018-02-06] MEDS: HEPARIN SODIUM - SQ 10,000 UNITS/ML VIAL SQ SCH ×2 (00:22→05:56)
[2018-02-06] MEDS: METHOCARBAMOL 500 MG TAB PO SCH ×2 (02:00→09:15)
[2018-02-06 08:00] VITALS: BP 110/64; PULSE 70; RESP 16; TEMP 97; O2SAT 98
[2018-02-06] MEDS: DOCUSATE SODIUM 100 MG CAP PO SCH (09:00)
[2018-02-06] MEDS: METOPROLOL TARTRATE 50 MG TAB PO SCH (09:00)
[2018-02-06] MEDS: MAGNESIUM HYDROXIDE SUSP 30 ML CUP PO SCH (09:00)
[2018-02-06] MEDS: amLODIPine BESYLATE 5 MG TAB PO SCH (09:00)
[2018-02-06] MEDS: SODIUM CHLORIDE 0.9% FLUSH 10 ML FLUSH IV FLUSH SCH (09:13)
[2018-02-06] MEDS: FAMOTIDINE 20 MG TAB PO SCH (09:14)
[2018-02-06] MEDS: LIDOCAINE HCL 5% PATCH T-DERMAL SCH (09:15)
[2018-02-06 12:00] VITALS: BP 126/68; PULSE 83; RESP 16; TEMP 97.3; O2SAT 98
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
== END 2018-02-06 15:25 | DRG 958 ==
LOC: N03A 22:10 → N07B 01-22 13:57 → N03A 01-23 21:32 → N07A 01-24 13:02
PROVIDERS: ADMIT Surgery; ATTEND Surgery
PROC: 04L43DZ Occlusion of Splenic Artery with Intraluminal Device, Percutaneous Approach (ICD-10-PCS; 2018-01-21)
PROC: 0WJP0ZZ Inspection of Gastrointestinal Tract, Open Approach (ICD-10-PCS; 2018-01-23)
PROC: 0WJH0ZZ Inspection of Retroperitoneum, Open Approach (ICD-10-PCS; 2018-01-23)
PROC: 0DBU0ZZ Excision of Omentum, Open Approach (ICD-10-PCS; 2018-01-23)
PROC: 07TP0ZZ Resection of Spleen, Open Approach (ICD-10-PCS; principal; 2018-01-23 18:18)
DX: S36.032A Major laceration of spleen, initial encounter (principal); S27.321A Contusion of lung, unilateral, initial encounter; N17.9 Acute kidney failure, unspecified; S22.42XA Multiple fractures of ribs, left side, initial encounter for closed fracture; E88.09 Other disorders of plasma-protein metabolism, not elsewhere classified; S82.202A Unspecified fracture of shaft of left tibia, initial encounter for closed fracture; D62 Acute posthemorrhagic anemia; Y93.55 Activity, bike riding; Y92.410 Unspecified street and highway as the place of occurrence of the external cause; Y99.9 Unspecified external cause status; V19.40XA Pedal cycle driver injured in collision with unspecified motor vehicles in traffic accident, initial encounter; J44.9 Chronic obstructive pulmonary disease, unspecified; Z72.0 Tobacco use; N18.9 Chronic kidney disease, unspecified; I12.9 Hypertensive chronic kidney disease with stage 1 through stage 4 chronic kidney disease, or unspecified chronic kidney disease; E78.5 Hyperlipidemia, unspecified; E04.1 Nontoxic single thyroid nodule; F10.220 Alcohol dependence with intoxication, uncomplicated; K21.9 Gastro-esophageal reflux disease without esophagitis; S82.402A Unspecified fracture of shaft of left fibula, initial encounter for closed fracture; Z59.0 Homelessness; Z23 Encounter for immunization
CPT/HCPCS: 36246; 36430; 37243; 71045; 72125; 73590; 73700; 74150; 74177; 75726; 76937; 80048; 80053; 80076; 82570; 83735; 84100; 84300; 85007; 85014; 85018; 85025; 85027; 85379; 85384; 85610; 85730; 86850; 86900; 86901; 86920; 87205; 87641; 88305; 88307; 90732; 90734; 94150; 94640; 94664; 94667; 94668; 99152; 99153; C1769; C1887; C1894; J0131; J0330; J0690; J1170; J1644; J2060; J2250; J2270; J2310; J2405; J2710; J3010; J7030; J7040; J7050; J7120; J7613; P9016; Q9967